=== PATIENT | female | born 1940 | race Caucasian/White ===

== ENCOUNTER → 2016-12-29 | Outpatient (CLI) | payer BC ==
[~2016-12-29] MED LIST: DARVOCET-N 1001 TAB PO; KEFLEX PO
--- NOTE | ~2016-12-29 | MY6 ---
[facility] A Service of [facility] & [facility] RADIOLOGY TEXT RESULTS PATIENT: HUMA CARVER LOCATION: [facility] : 42 UNIT #: [id number] AGE: [address]: RENO QUEEN DO SEX: F ORDER DR: [id number] [facility] [address] [facility] [place], [place] [address] [id number] O MR#: [id number] Acc #: [id number] NAME: HUMA CARVER : 1940 SEX: F STUDY DATE/TIME: 12/29/2016 16:04 UNIT: [facility] ROOM: STUDY DESCRIPTION: MY Mammogram Dx Dig Justin Attending Physician: Reno Queen D.O. Ordering Physician: Reno Queen D.O. Primary Care Physician: eRno Queen D.O. MEDICAL IMAGING REPORT This report is preliminary unless electronic signature is present EXAM Bilateral digital diagnostic mammogram with CAD device, 12/29/2016 HISTORY 6-month followup left breast nodule. FINDINGS Bilateral digital diagnostic mammogram was performed in craniocaudal, mediolateral oblique and mediolateral projections demonstrating moderate fibroglandular tissue. Compared with 04/15/2016 there has been no change in the 5.0 mm nodule within the upper inner quadrant of the left breast. The nodule appears well-circumscribed. No suspicious cluster of microcalcifications was seen. The films have been reviewed by an FDA-approved CAD device. Followup mammogram of the left breast is recommended in 6 months to assess this probably benign finding for stability. IMPRESSION No interval change in the 5.0 mm nodule in the left breast compared with 04/15/2016. Followup left mammogram is recommended in 6 months to assess this probably benign finding for continued stability. Patients over the age of 40 are entered into a reminder system with target due date for the next mammogram. A result letter will also be sent to the patient. BIRADS: 3 Probably Benign Finding; Short interval follow-up suggested Dictated by... Luis Oglesby M.D. THIS IS AN ELECTRONICALLY VERIFIED REPORT Luis Oglesby M.D. at 12/30/2016 7:47 AM [facility] A Service of [facility] RADIOLOGY TEXT RESULTS PATIENT: HUMA CARVER LOCATION: [facility] : 42 UNIT #: [id number] AGE: [address]: RENO QUEEN DO SEX: F ORDER DR: Elenita TD: 12/29/2016 19:05 JOB #: [id number] MEDICAL IMAGING REPORT Page 1 of 1 COPY
== END | disposition home or self-care (01) ==
LOC: CMAM 15:10
DX: N63 Unspecified lump in breast (principal)
CPT/HCPCS: G0204